=== PATIENT | female | born 1980 | race Caucasian/White ===

== ENCOUNTER 2017-12-18 10:33 | Day surgery (SDC) | payer BC ==
[~2017-12-18] VITALS: Ht 162.6 cm; Wt 70.8 kg
[~2017-12-18 10:33] MED LIST: CEFAZOLIN 1 GM IVPB PREMIX 50 ML IV ONE
[2017-12-18] MEDS ORDERED: LR 1,000 ML IV SCH (14:40)
[2017-12-18] MEDS ORDERED: METOCLOPRAMIDE HCL 10 MG/2 ML VIAL IVP PRN (14:45)
[2017-12-18] MEDS ORDERED: MORPHINE 4 MG/ML INJ. SYRINGE IVP PRN ×2 (14:45)
[2017-12-18] MEDS ORDERED: KETOROLAC TROMETHAMINE 30 MG VIAL ONE (15:00)
[2017-12-18] MEDS ORDERED: ROCURONIUM BROMIDE 10 MG/ML (ZEMURON) ONE (15:00)
[2017-12-18] MEDS ORDERED: LR 1,000 ML IV.SOLN IV ONE (15:00)
[2017-12-18] MEDS ORDERED: MIDAZOLAM HCL 5 MG/ML VIAL (VERSED) IV ONE (15:00)
[2017-12-18] MEDS ORDERED: fentaNYL CITRATE 250 MCG/5 ML AMP ONE (15:00)
[2017-12-18] MEDS ORDERED: fentaNYL CITRATE/PF 100 MCG/2 ML AMP ONE (15:00)
[2017-12-18] MEDS ORDERED: NS 1000 ML IV.SOLN IV ONE (15:00)
[2017-12-18] MEDS ORDERED: ONDANSETRON HCL 4 MG/2 ML VIAL IVP PRN (15:00)
[2017-12-18] MEDS ORDERED: SEVOFLURANE 15 MIN GAS INH ONE (15:00)
[2017-12-18] MEDS ORDERED: ONDANSETRON HCL 4 MG/2 ML VIAL ONE (15:00)
[2017-12-18] MEDS ORDERED: ROPIVACAINE 0.2% (NAROPIN) PF SOLUTION 100 ML BOTTLE ONE (15:00)
[2017-12-18] MEDS ORDERED: BUPIVACAINE /PF 0.5% 30 ML VIAL ONE (15:00)
[2017-12-18] MEDS ORDERED: PROPOFOL 200MG/ 20ML VIAL (DIPRIVAN) IV ONE (15:00)
[2017-12-18] MEDS: MORPHINE 4 MG/ML INJ. SYRINGE IVP PRN ×3 (15:10→15:30)
[2017-12-18] MEDS ORDERED: MORPHINE 4 MG/ML INJ. SYRINGE ONE ×2 (15:14→15:36)
[2017-12-18] MEDS ORDERED: HYDROcodone/ACETAMIN 5-325 MG TAB (NORCO/ VICODIN) ONE (16:59)
[2017-12-18] MEDS ORDERED: OXYCODONE/ACETAMINOPHEN 5-325 TABLET PO PRN ×2 (17:00)
[2017-12-18] MEDS ORDERED: HYDROcodone/ACETAMIN 5-325 MG TAB (NORCO/ VICODIN) PO PRN (17:00)
[2017-12-18 17:14] VITALS: BP_SYST 124
[2018-01-01] MEDS ORDERED: KETOROLAC TROMETHAMINE 30 MG VIAL IVP ONE (17:00)
== END 2017-12-18 17:50 | disposition home or self-care (01) ==
LOC: SDS 10:33 → SMU 10:33 → SDS 17:50
PROVIDERS: ATTEND Specialist
DX: N80.0 Endometriosis of uterus (principal); Z79.899 Other long term (current) drug therapy; Z98.890 Other specified postprocedural states
CPT/HCPCS: 58661; 88305; C1727; C1782; J0690; J1885; J2250; J2270; J2405; J2704; J2795; J3010 ×2; J3490; J7030; J7120